=== PATIENT | female | born 1940 | race Two or more races ===

== ENCOUNTER 2018-04-23 10:01 | Day surgery (SDC) | payer MEDICARE, MEDICAID ==
[2018-04-23] VITALS (9 sets, daily range): BP systolic 102–146; BP diastolic 60–84
[~2018-04-23] VITALS: Ht 149.9 cm; Wt 52.2 kg
[~2018-04-23 10:01] MED LIST: ARMOUR THYROID60 MG PO
[2018-04-23] MEDS ORDERED: MICARDIS40 MG ORAL (11:02)
[2018-04-23] MEDS ORDERED: ARMOUR THYROID60 MG PO (11:11)
[2018-04-23] MEDS ORDERED: Midazolam 2mg/2ml Inj ONE (11:39)
[2018-04-23] MEDS ORDERED: fentaNYL 100 mcg/2 mL IV ONE (11:39)
[2018-04-23] MEDS ORDERED: Propofol 200mg/20ml IV ONE (11:39)
[2018-04-23] MEDS ORDERED: Bacitracin Oint 15gm Tube TOPIC ONE (11:40)
[2018-04-23] MEDS ORDERED: Betadine 10% Oint 30gm TOPIC ONE (11:40)
[2018-04-23] MEDS ORDERED: Bupivacaine 0.5% Inj 30 ml vial INJ ONE (11:40)
[2018-04-23] MEDS ORDERED: Dexamethasone 4mg/ml vial ONE (11:40)
[2018-04-23] MEDS ORDERED: Lidocaine 1% Plain 30 ml INJ ONE (11:41)
--- NOTE | 2018-04-23 11:50 | Anethesia Preoperative Eval ---
Anesthesia Pre-op PMH/ROS General Date of Evaluation: Apr 23, 2018 Time of Evaluation: 11:44 Anesthesiologist: Kori Kelly CRNA ASA Score: ASA 2 Mallampati Score Class I : Soft palate, uvula, fauces, pillars visible Class II: Soft palate, uvula, fauces visible Class III: Soft palate, base of uvula visible Class IV: Only hard plate visible Mallampati Classification: Class II Surgeon: Adam Diagnosis: RIGHT bunion Surgical Procedure: RIGHT bunionectomy Anesthesia History: none Allergies: Coded Allergies: VANCOMYCIN (Verified Allergy, Severe, 04/22/18) SEVERE HEADACHE, PASSING OUT, SWELLING Medications: see eMAR Past Medical History Cardiovascular: Reports: HTN; Denies: CAD, NV, valve dz, arrhythmia, other Pulmonary: Denies: asthma, COPD, SHIREEN, other Gastrointestinal/Genitourinary: Denies: GERD, CRI, ESRD, other Neurologic/Psychiatric: Denies: dementia, CVA, depression/anxiety, TIA, other Endocrine: Reports: hypothyroidism; Denies: DM, steroids, other HEENT: Denies: cataract (L), cataract (R), glaucoma, KARUK (L), KARUK (R), other Hematology/Immune: Denies: anemia, DVT, bleeding disorder, other Musculoskeletal/Integumentary: Reports: other - (B) bunions, s/p LEFT bunionectomy plan for RIGHT today; Denies: OA, RA, DJD, DDD, edema PMH Narrative: as above PSxH Narrative: LEFT bunionectomy, Anesthesia Pre-op Phys. Exam Physician Exam Last Vital Signs Date Time Temp Pulse Resp B/P (MAP) Pulse Ox O2 Delivery O2 Flow Rate FiO2 04/23/18 10:35 97.5 65 20 146/84 98 Room Air 97.5 Constitutional: NAD Neurologic: CN 2-12 intact Cardiovascular: RRR Respiratory: CTA Gastrointestinal: S/NT/ND Airway Exam Mallampati Score: Class II MO: full Neck: no issues TMD: > 3 FB ROM: full Teeth: intact Dentures: lower; no upper Anesthesia Pre-op A/P Labs see chart Studies Pre-op Studies: EKG - NSR Risk Assessment & Plan Assessment: ASA 2 ok to proceed, NPO status cleared Plan: MAC Status Change Before Surgery: Kori Mcgill CRNA Apr 23, 2018 11:50
[2018-04-23] MEDS ORDERED: NS Irrig 1000ml ONE (12:00)
[2018-04-23] MEDS ORDERED: Sterile Water Irrig 1000ml IRRIG ONE (12:00)
[2018-04-23] MEDS ORDERED: LR 1000ml ONE (12:00)
--- NOTE | 2018-04-23 12:03 | Pre-Procedure Note/Attestation ---
Pre-Procedure Note/Attestation Complete Prior to Procedure Planned Procedure: right Procedure Narrative: Bunionectomy osteotomy right foot Indications for Procedure Pre-Operative Diagnosis: Hallux valgus right foot Attestation I attest that I discussed the nature of the procedure; its benefits; risks and complications; and alternatives (and the risks and benefits of such alternatives ), prior to the procedure, with the patient (or the patient's legal u.s. representative). I attest that, if there was a reasonable possibility of needing a blood transfusion, the patient (or the patient's legal u.s. representative) was given the [facility] standardized written summary, pursuant to the Saulo Ashwin Blood Safety Act ([place] Health and Safety Code # 1645, as amended). I attest that I re-evaluated the patient just prior to the surgery and that there has been no change in the patient's H&P, except as documented below: Mk Medina DPM Apr 23, 2018 12:03
[2018-04-23] MEDS ORDERED: NS Irrig 1000ml IRRIG ONE (12:18)
[2018-04-23] MEDS ORDERED: Hydromorphone 0.5mg/0.5ml inj IVP PRN (12:45)
--- NOTE | 2018-04-23 13:46 | Brief Operative Note ---
Immediate Post Operative Note Operative Note Pre-op Diagnosis: Hallux valgus right foot Procedure: Bunionectomy osteotomy right foot Post-op Diagnosis: same as pre-op Surgeon: yordan Anesthesiologist: clive Anesthesia: MAC Specimen: yes Complications: none Condition: stable Fluids: 200 Estimated Blood Loss: none Drains: none Implant(s) used?: Yes Mk Medina DPM Apr 23, 2018 13:46
--- NOTE | 2018-04-23 13:52 | Immediate Post-Op Evaluation ---
Immediate Post-Op Evalulation Immediate Post-Op Evalulation Procedure: RIGHT foot bunionectomy osteotomy Date of Evaluation: Apr 23, 2018 Time of Evaluation: 13:44 IV Fluids: LR 600 ml Blood Pressure Systolic: 102 Blood Pressure Diastolic: 60 Pulse Rate: 59 Respiratory Rate: 22 O2 Sat by Pulse Oximetry: 98 Temperature (Fahrenheit): 98.0 Pain Score (1-10): 0 Nausea: No Vomiting: No Complications none Patient Status: awake, reacts, patent Hydration Status: adequate Drug: Cefazolin Given Within 1 Hr of Incision: Yes Time Given: 12:10 Kori Kelly CRNA Apr 23, 2018 13:52
--- NOTE | 2018-04-23 14:36 | Diagnostic Imaging Report ---
Indication: POST-OP, Foot pain, status post bunionectomy Technique: 3 views right foot Comparison: none Findings: Surgical staple is seen reducing first proximal phalangeal osteotomy. Surgical screw is seen reducing first metatarsal osteotomy. Patient is also status post bunionectomy. Retained air from the surgical exposure is seen within the soft tissues. There is mild hammertoe deformity of second through fifth digits. There is a small calcaneal spur Impression: Postoperative right foot. No unusual features
--- NOTE | 2018-04-24 01:45 | History and Physical Report ---
DATE OF ADMISSION: 04/23/2018 PODIATRIC HISTORY AND PHYSICAL HISTORY OF PRESENT ILLNESS: This is a 77-year-old white female that was admitted today for an outpatient bunionectomy of her right foot. The patient has been complaining about right foot pain for the past several years. She tried to treat her condition with shoe gear modifications and padding over her right bunion, which did not alleviate her pain. She has been complaining of sharp and ache type of pain and difficulty wearing closed shoes. The patient was consulted on surgical option following failure of all the conservative options and she elected to proceed. PAST MEDICAL HISTORY: Remarkable for hypertension, osteoarthritis, spinal disc disease, and gastroesophageal reflux disease. MEDICATIONS: Synthroid, Micardis, and Nexium. ALLERGIES: No known drug allergies. PODIATRIC PHYSICAL EXAMINATION: VASCULAR EXAM: Dorsalis pedis and posterior tibial arteries are equally palpable measuring 2/4 bilaterally. The capillary filling time is less than 4 to 5 seconds to all digits bilaterally. Mild varicosities are noted in bilateral lower extremity. Homans sign is negative. NEUROLOGICAL EXAMINATION: Reveals intact reflexes in Achilles and patellar measuring 2/4 bilaterally. Sensation, proprioception, and vibration sensation are all intact bilaterally. Babinski is negative. Clonus is absent in bilateral lower extremity. MUSCULOSKELETAL EXAMINATION: Reveals stage 3, 4 hallux abductovalgus with bunion deformity on the right foot. The hallux is abutting the second digit. The lesser digits, second through fifth exhibit mild nonreducible hammertoe deformities. The left foot reveals no structural deformities. DERMATOLOGICAL EXAMINATION: All nails are present and dystrophic bilaterally. No ulcers, scars, or lesions are seen on the right foot. There is a scar overlying the hallux from prior bunionectomy over the left foot. ASSESSMENT: Hallux abductovalgus with bunion deformity, right foot. PLAN: The patient is admitted today for an outpatient bunionectomy of her right foot. All risks, complications, and alternative treatment discussed with the patient. Postoperative instructions were given. Postoperative medication was dispensed to the patient. The patient elected to proceed with surgery. Mk Medina D.P.M. DR: TIMOTHY JOB#: [id number] CC:
--- NOTE | 2018-04-24 02:00 | Operative Note - Dictated ---
DATE OF OPERATION: 04/23/2018 SURGEON: Mk Medina D.P.M. NURSE NON DESTRUCTIVE TESTING INSPECTOR: BETTINA Kelly. ANESTHESIA: Local standby. PREOPERATIVE DIAGNOSIS: Hallux abductovalgus with bunion deformity, right foot. POSTOPERATIVE DIAGNOSIS: Hallux abductovalgus with bunion deformity, right foot. PROCEDURE PERFORMED: 1. [employer]ron bunionectomy with 22 mm screw fixation. 2. [place] osteotomy with 8 x 8 mm staple, right hallux. DESCRIPTION OF THE OPERATION: The patient was brought to the operating room and was placed on the operating room table in the supine position. Intravenous sedation was administered by the anesthesiologist. Local anesthesia consisting of 0.5% Marcaine plain, a total of 15 mL was administered to the right hallux. The foot was prepped and draped in the usual sterile manner. An ankle tourniquet was applied and an Esmarch bandage was utilized to exsanguinate the blood and the right ankle tourniquet was inflated to 250 mmHg. Attention was then directed to the right hallux where an approximately 6 to 7 cm dorsal linear skin incision was performed centered over the first metatarsophalangeal joint. The incision was deepened utilizing sharp and blunt dissection with care being taken to cauterize and ligate all bleeders. At the level of the capsule, a linear capsulotomy was performed. The capsule was reflected medially and laterally and the head of the first metatarsal was exposed. Utilizing a sagittal saw, the medial eminence was resected in total. The remaining bone was rasped smooth. The wound was copiously flushed utilizing sterile saline. At this point, a lateral release was performed utilizing a #67 blade. Attention was then directed to the first metatarsal neck where a V-type osteotomy was performed through and through utilizing a sagittal blade with the apex distal and the arms protruding proximally. The capital fragment was then transposed laterally and fixated onto the metatarsal shaft utilizing headless cannulated screw 22 mm, which was driven from proximal dorsal to plantar distal. The overhang was then resected utilizing a sagittal saw. The remaining bone was rasped smooth. The wound was copiously flushed utilizing sterile saline. At this point, the dissection was carried distally to the mid shaft of the proximal phalanx. The periosteum was reflected dorsally and plantarly. Utilizing a sagittal saw, a medial wedge was resected from the bone leaving the lateral cortex intact. The osteotomy was reduced. At this point, 2 drill holes were created just proximal and distal to the osteotomy and an 8 x 8 mm staple was inserted into those drill holes to fixate the osteotomy. The wound was copiously flushed utilizing sterile saline. At this point, the capsule was reapproximated utilizing 3-0 Vicryl in a simple interrupted type stitch. The subcutaneous tissue was then reapproximated utilizing 4-0 Vicryl in a buried knot type stitch. The skin was then reapproximated utilizing 4-0 nylon in a simple interrupted type stitch. The wound was dressed utilizing an Adaptic, 4 x 4 gauze, and 3-inch Felix. The right ankle tourniquet was deflated and vascular supply was noted to all digits of the right foot. The patient tolerated the procedure well and left the operating room to recovery room with all vital signs stable. Mk Medina D.P.M. DR: TIMOTHY JOB#: [id number] CC:
[2018-04-24 08:25] VITALS: BP 122/65
--- NOTE | 2018-04-24 08:25 | 48 Hour Post Anesthesia Eval ---
Post Anesthesia Evaluation Procedure: RIGHT foot bunionectomy osteotomy Date of Evaluation: Apr 24, 2018 Time of Evaluation: 14:50 Blood Pressure Systolic: 122 0: 65 Pulse Rate: 60 Respiratory Rate: 15 Temperature (Fahrenheit): 97.3 O2 Sat by Pulse Oximetry: 97 Airway: patent Nausea: No Vomiting: No Pain Intensity: 0 Hydration Status: adequate Cardiopulmonary Status: stable Mental Status/LOC: patient returned to baseline Follow-up Care/Observations: per surgeon Post-Anesthesia Complications: none Follow-up care needed: ready to discharge Kori Kelly CRNA Apr 24, 2018 08:25
== END 2018-04-23 14:50 | disposition home or self-care (01) ==
LOC: SUR 10:01
DX: M20.11 Hallux valgus (acquired), right foot (principal); M21.611 Bunion of right foot; I10 Essential (primary) hypertension; M19.90 Unspecified osteoarthritis, unspecified site; K21.9 Gastro-esophageal reflux disease without esophagitis; F41.9 Anxiety disorder, unspecified; E03.9 Hypothyroidism, unspecified; Z88.1 Allergy status to other antibiotic agents
CPT/HCPCS: 28299; 73630; 97161; C1713; G8978; G8979; G8980; J1100; J2001; J2250; J2704; J3010; J3490; 94003; 94150